=== PATIENT | male | born 1970 | race Caucasian/White ===

== ENCOUNTER 2017-06-18 08:29 | Emergency (ER) | payer OTHER ==
[~2017-06-18] VITALS: Ht 182.9 cm; Wt 109.8 kg
[~2017-06-18 08:29] MED LIST: HYDROCODONE-AP1 EAC6 PO; NAPROSYN500 MG PO; NORCO 5-325 TA1 EACH PO; PRINZIDE 20-121 EACH; ROBAXIN 750 MG750 M1 PO
[2017-06-18] MEDS ORDERED: NOHOMEMEDICATIONS (08:50)
[2017-06-18] MEDS ORDERED: NORCO 5-325 TA1 EACH PO (09:14)
[2017-06-18 09:23] VITALS: BP 152/94
== END 2017-06-18 09:24 | disposition home or self-care (01) ==
LOC: M.ERS 08:29
DX: S86.812A Strain of other muscle(s) and tendon(s) at lower leg level, left leg, initial encounter (principal); I10 Essential (primary) hypertension; W51.XXXA Accidental striking against or bumped into by another person, initial encounter; Y93.67 Activity, basketball; Y92.89 Other specified places as the place of occurrence of the external cause; Y99.8 Other external cause status

== ENCOUNTER 2017-10-16 16:37 | Emergency (ER) | payer OTHER ==
[~2017-10-16] VITALS: Ht 182.9 cm; Wt 111.1 kg
[~2017-10-16 16:37] MED LIST changes: +NOHOMEMEDICATIONS
[2017-10-16] MEDS ORDERED: NAPROSYN500 MG PO (16:47)
[2017-10-16] MEDS ORDERED: IBUPROFEN 600600 M1 PO (16:48)
[2017-10-16 17:19] LABS: ABSOLUTE BASOPHILS 0.1 thou/uL (0.0-0.2); ABSOLUTE EOSINOPHILS 0.1 thou/uL (0.0-0.7); ABSOLUTE LYMPHOCYTES 2.9 thou/uL (0.8-5.3); ABSOLUTE MONOCYTES 0.7 thou/uL (0.0-1.2); ABSOLUTE NEUTROPHILS 5.6 thou/uL (1.6-8.1); BASOPHILS 0.5 %; EOSINOPHILS 1.4 %; HEMATOCRIT 42.1 % (42.0-52.0); HEMOGLOBIN 14.6 gm/dL (14.0-18.0); LYMPHOCYTES 30.9 %; MCH 30.9 pg (26.0-34.0); MCHC 34.6 g/dL (28.0-37.0); MCV 89.2 fL (80.0-100.0); MPV 7.7 fl. (7.2-11.1); NUCLEATED RBCS 0 /100WBC; PLATELET COUNT* 213 thou/uL (150-400); POLYS 60.2 %; RBC 4.72 mil/uL (4.50-6.00); RDW-CV 13.2 % (10.5-14.5); WBC 9.4 thou/uL (4.0-11.0)
[2017-10-16 17:26] LABS: CALCIUM 8.5 mg/dL (8.5-10.1); CREATININE 0.9 mg/dL (0.6-1.3); POTASSIUM 3.2 mmol/L (3.5-5.1)
[2017-10-16 17:30] LABS: ALBUMIN 3.7 g/dL (3.4-5.0); TOTAL BILIRUBIN 0.3 mg/dL (<0.1-1.0); TOTAL PROTEIN 6.9 g/dL (6.4-8.2)
[2017-10-16] MEDS ORDERED: ACETAMINOPHEN-1 EAC1 PO (18:25)
[2017-10-16 18:43] VITALS: BP 141/81
== END 2017-10-16 18:44 | disposition home or self-care (01) ==
LOC: M.ERS 16:37
PROVIDERS: Nurse Practitioner Family
DX: M79.662 Pain in left lower leg (principal); E87.6 Hypokalemia; I10 Essential (primary) hypertension; Z98.890 Other specified postprocedural states

== ENCOUNTER 2019-01-01 12:42 | Emergency (ER) | payer OTHER ==
[~2019-01-01] VITALS: Ht 182.9 cm; Wt 97.5 kg
[~2019-01-01 12:42] MED LIST changes: +ACETAMINOPHEN-1 EAC1 PO; +IBUPROFEN 600600 M1 PO
[2019-01-01] MEDS ORDERED: FLEXERIL PO (13:43)
[2019-01-01] MEDS ORDERED: NORCO 5-325 TA1 EAC1 PO (13:43)
[2019-01-01 13:59] VITALS: BP 131/92
--- NOTE | 2019-01-01 15:55 | EKG ---
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: : 1970 Requested By: Shahab Stubbs Order Number: [id number] MD: Noe Branham Measurements Intervals [place] Rate: 69 P: -1 WA: 144 QRS: 38 QRSD: 93 T: 28 QT: 374 QTc: 401 Interpretive Statements Sinus rhythm artifact noted Probable right ventricular hypertrophy Baseline wander in lead(s) V1 Compared to ECG 03/30/2011 20:20:39 early repolarization present Electronically Signed On 01-01-2019 15:55:29 [employer] by Noe Branham [email or web address] <ELECTRONICALLY SIGNED> By: Noe Branham MD, [facility] 01/01/19 1555 [id number] [id number] Noe Branham MD, FACC /EPI
== END 2019-01-01 14:00 | disposition home or self-care (01) ==
LOC: M.ERS 12:42
DX: S46.001A Unspecified injury of muscle(s) and tendon(s) of the rotator cuff of right shoulder, initial encounter (principal); M54.10 Radiculopathy, site unspecified; I10 Essential (primary) hypertension; F17.210 Nicotine dependence, cigarettes, uncomplicated; X58.XXXA Exposure to other specified factors, initial encounter; Y93.89 Activity, other specified; Y92.89 Other specified places as the place of occurrence of the external cause; Y99.8 Other external cause status